=== PATIENT | male | born 1965 | race Caucasian/White ===

== ENCOUNTER 2022-04-26 14:29 | Inpatient (IN) | payer OTHER ==
[2022-04-26 15:04] VITALS: BMI 31.1
[2022-04-26] MEDS ORDERED: chlordiazePOXIDE HCL 25 MG CAPSULE PO SCH (17:00)
[2022-04-26] MEDS ORDERED: IBUPROFEN 400 MG TABLET (FP) PO PRN (17:12)
[2022-04-26] MEDS ORDERED: ONDANSETRON *ODT* 4 MG TABLET SL PRN (17:12)
[2022-04-26] MEDS ORDERED: MAGNESIUM CITRATE 300 ML BOTTLE PO PRN (17:12)
[2022-04-26] MEDS ORDERED: MAGNESIUM HYDROX 2400MG/30ML ORAL SUSPENSION 30 ML CUP PO PRN (17:12)
[2022-04-26] MEDS ORDERED: BISMUTH SUBSALICYLATE 524 MG/30 ML PO PRN (17:12)
[2022-04-26] MEDS ORDERED: LOPERAMIDE HCL 2 MG CAPSULE PO PRN (17:12)
[2022-04-26] MEDS ORDERED: MAG HYDROX/AL HYDROX/SIMETH 30 ML UNIT-DOSE CUP PO PRN (17:12)
[2022-04-26] MEDS ORDERED: NICOTINE 10 MG CARTRIDGE (INHALER) IH PRN (17:12)
[2022-04-26] MEDS ORDERED: IBUPROFEN 600 MG TABLET (FP) PO PRN (17:12)
[2022-04-26] MEDS ORDERED: ACETAMINOPHEN 325 MG TABLET (FP) PO PRN ×2 (17:12)
[2022-04-26] MEDS ORDERED: BENZOCAINE/MENTHOL (CHLORASEPTIC ) LOZENGE MM PRN (17:12)
[2022-04-26] MEDS ORDERED: chlordiazePOXIDE HCL 25 MG CAPSULE PO PRN (17:12)
[2022-04-26] MEDS ORDERED: NALOXONE HCL (KLOXXADO) 8 MG SPRAY NS PRN (17:12)
[2022-04-26] MEDS ORDERED: diazePAM 5 MG TABLET PO PRN (17:12)
[2022-04-26] MEDS ORDERED: DICYCLOMINE HCL 10 MG CAPSULE PO PRN (17:12)
[2022-04-26] MEDS: diazePAM 5 MG TABLET PO SCH ×2 (17:42→22:28)
[2022-04-26] MEDS: hydrOXYzine PAMOATE 25 MG CAPSULE (FP) PO SCH ×2 (17:43→22:29)
[2022-04-26] MEDS: PRENATAL VITAMINS W/ FOLIC ACID TABLET (FP) PO SCH (19:23)
[2022-04-26] MEDS: NICOTINE 21 MG/24 HOURS TOPICAL PATCH TD SCH (19:23)
[2022-04-26] MEDS: THIAMINE HCL 100 MG TABLET (FP) PO SCH (22:28)
[2022-04-26] MEDS: MELATONIN 5 MG TABLETS PO SCH (22:29)
[2022-04-27] MEDS: diazePAM 5 MG TABLET PO SCH ×2 (05:37→10:55)
[2022-04-27] MEDS: hydrOXYzine PAMOATE 25 MG CAPSULE (FP) PO SCH ×5 (05:38→22:54)
[2022-04-27] MEDS: PRENATAL VITAMINS W/ FOLIC ACID TABLET (FP) PO SCH (09:34)
[2022-04-27] MEDS: NICOTINE 21 MG/24 HOURS TOPICAL PATCH TD SCH (09:47)
[2022-04-27] MEDS ORDERED: methaDONE HCL 40 MG DISPERSABLE TABLET PO ONE (10:00)
[2022-04-27 11:12] LABS: CALCIUM 8.4 mg/dL (8.5-10.1)
[2022-04-27 11:13] LABS: ALBUMIN 2.8 g/dl (3.4-5.0); BLOOD UREA NITROGEN 12.8 mg/dL (7-18)
[2022-04-27 11:15] LABS: CREATININE 0.6 mg/dL (0.55-1.3); HEMATOCRIT 30.7 % (35.4-49); HEMOGLOBIN 10.7 GM/dL (11.7-16.9); MCH 28.1 pg (25.7-33.7); MCHC 34.7 g/dl (32.0-35.9); MEAN CELL VOLUME 80.9 fl (80-96); MEAN PLT VOLUME 7.2 fl (7.5-11.1); PLATELET COUNT 59 10^3/uL (134-434); RDW 16.8 % (11.9-15.9); TOT PROT 6.3 g/dl (6.4-8.2); WHITE BLOOD COUNT 2.8 K/mm3 (4.0-10.0)
[2022-04-27 11:21] LABS: BILIRUBIN,TOTAL 0.7 mg/dL (0.2-1)
[2022-04-27] MEDS ORDERED: chlordiazePOXIDE HCL 25 MG CAPSULE PO PRN (11:38)
[2022-04-27] MEDS ORDERED: chlordiazePOXIDE HCL 25 MG CAPSULE PO SCH (17:00)
[2022-04-27] MEDS ORDERED: chlordiazePOXIDE HCL 10 MG CAPSULE PO SCH (17:44)
[2022-04-27] MEDS: THIAMINE HCL 100 MG TABLET (FP) PO SCH (22:54)
[2022-04-27] MEDS: MELATONIN 5 MG TABLETS PO SCH (22:55)
[2022-04-27] MEDS: PARoxetine HCL 10 MG TABLET PO SCH (22:55)
[2022-04-28] MEDS: chlorproMAZINE HCL 100 MG TABLET PO SCH ×2 (00:10→22:27)
[2022-04-28] MEDS ORDERED: chlordiazePOXIDE HCL 25 MG CAPSULE PO SCH (05:00)
[2022-04-28] MEDS ORDERED: diazePAM 5 MG TABLET PO SCH (06:00)
[2022-04-28] MEDS: methaDONE HCL 40 MG DISPERSABLE TABLET PO SCH (06:01)
[2022-04-28] MEDS: chlordiazePOXIDE HCL 10 MG CAPSULE PO SCH ×3 (06:01→22:26)
[2022-04-28] MEDS: hydrOXYzine PAMOATE 25 MG CAPSULE (FP) PO SCH ×5 (06:03→22:27)
[2022-04-28] MEDS: NICOTINE 21 MG/24 HOURS TOPICAL PATCH TD SCH (10:30)
[2022-04-28] MEDS: PRENATAL VITAMINS W/ FOLIC ACID TABLET (FP) PO SCH (10:31)
[2022-04-28] MEDS: METHOCARBAMOL 500 MG TABLET PO PRN (10:31)
[2022-04-28] MEDS: THIAMINE HCL 100 MG TABLET (FP) PO SCH (22:26)
[2022-04-28] MEDS: PARoxetine HCL 10 MG TABLET PO SCH (22:27)
[2022-04-28] MEDS: MELATONIN 5 MG TABLETS PO SCH (22:27)
[2022-04-29] MEDS ORDERED: chlordiazePOXIDE HCL 10 MG CAPSULE PO PRN ×2
[2022-04-29] MEDS ORDERED: chlordiazePOXIDE HCL 10 MG CAPSULE PO SCH (05:00)
[2022-04-29] MEDS: chlordiazePOXIDE HCL 10 MG CAPSULE PO SCH ×2 (05:13→17:45)
[2022-04-29] MEDS: methaDONE HCL 40 MG DISPERSABLE TABLET PO SCH (05:14)
[2022-04-29] MEDS: hydrOXYzine PAMOATE 25 MG CAPSULE (FP) PO SCH ×5 (05:16→22:47)
[2022-04-29] MEDS ORDERED: diazePAM 5 MG TABLET PO SCH (06:00)
[2022-04-29] MEDS: PRENATAL VITAMINS W/ FOLIC ACID TABLET (FP) PO SCH (10:40)
[2022-04-29] MEDS: NICOTINE 21 MG/24 HOURS TOPICAL PATCH TD SCH (10:40)
[2022-04-29] MEDS: METHOCARBAMOL 500 MG TABLET PO PRN (10:41)
[2022-04-29 21:09] VITALS: RESP 16
[2022-04-29] MEDS: PARoxetine HCL 10 MG TABLET PO SCH (22:47)
[2022-04-29] MEDS: MELATONIN 5 MG TABLETS PO SCH (22:47)
[2022-04-29] MEDS: chlorproMAZINE HCL 100 MG TABLET PO SCH (22:47)
[2022-04-29] MEDS: THIAMINE HCL 100 MG TABLET (FP) PO SCH (22:48)
[2022-04-30] MEDS ORDERED: chlordiazePOXIDE HCL 10 MG CAPSULE PO SCH (05:00)
[2022-04-30] MEDS: methaDONE HCL 40 MG DISPERSABLE TABLET PO SCH (05:13)
[2022-04-30] MEDS: hydrOXYzine PAMOATE 25 MG CAPSULE (FP) PO SCH (05:13)
[2022-04-30] MEDS ORDERED: diazePAM 5 MG TABLET PO ONE (06:00)
[2022-04-30] MEDS ORDERED: chlordiazePOXIDE HCL 10 MG CAPSULE PO ONE (06:00)
[2022-04-30 06:21] VITALS: BP 130/80; PULSE 67; TEMP 98
[2022-05-01] MEDS ORDERED: chlordiazePOXIDE HCL 10 MG CAPSULE PO ONE (05:00)
== END 2022-04-30 07:47 | disposition other institution (70) | DRG 897 ==
LOC: SUATTDRO 14:29 → YASAS 14:29 → Y6N 16:47
PROVIDERS: ADMIT Allergy & Immunology; ATTEND Surgery
PROC: HZ2ZZZZ Detoxification Services for Substance Abuse Treatment (ICD-10-PCS; principal; 2022-04-26)
DX: F10.230 Alcohol dependence with withdrawal, uncomplicated (principal); F11.20 Opioid dependence, uncomplicated; F14.20 Cocaine dependence, uncomplicated; F13.20 Sedative, hypnotic or anxiolytic dependence, uncomplicated; F19.282 Other psychoactive substance dependence with psychoactive substance-induced sleep disorder; F31.81 Bipolar II disorder; F12.20 Cannabis dependence, uncomplicated; F17.210 Nicotine dependence, cigarettes, uncomplicated; F19.24 Other psychoactive substance dependence with psychoactive substance-induced mood disorder; E66.9 Obesity, unspecified; Z68.31 Body mass index [BMI] 31.0-31.9, adult; Z86.19 Personal history of other infectious and parasitic diseases
CPT/HCPCS: 36415; 80053; 85027; 86780; 87811; 93005; 93010; C9803-CS; U0003; U0005

== ENCOUNTER 2022-08-31 12:11 | Inpatient (IN) | payer OTHER ==
[2022-08-31 15:07] VITALS: BMI 30.4
[2022-08-31] MEDS ORDERED: IBUPROFEN 400 MG TABLET (FP) PO PRN (15:28)
[2022-08-31] MEDS ORDERED: hydrOXYzine PAMOATE 25 MG CAPSULE (FP) PO PRN (15:28)
[2022-08-31] MEDS ORDERED: ACETAMINOPHEN 325 MG TABLET (FP) PO PRN ×2 (15:28)
[2022-08-31] MEDS ORDERED: IBUPROFEN 600 MG TABLET (FP) PO PRN (15:28)
[2022-08-31] MEDS ORDERED: POLYETHYLENE GLYCOL (HEALTHYLAX) 3350 17 GM PACKET PO PRN (15:28)
[2022-08-31] MEDS ORDERED: BISMUTH SUBSALICYLATE 524 MG/30 ML PO PRN (15:28)
[2022-08-31] MEDS ORDERED: MAGNESIUM HYDROX 2400MG/30ML ORAL SUSPENSION 30 ML CUP PO PRN (15:28)
[2022-08-31] MEDS ORDERED: LOPERAMIDE HCL 2 MG CAPSULE PO PRN (15:28)
[2022-08-31] MEDS ORDERED: BENZOCAINE/MENTHOL (CHLORASEPTIC ) LOZENGE MM PRN (15:28)
[2022-08-31] MEDS ORDERED: MAG HYDROX/AL HYDROX/SIMETH 30 ML UNIT-DOSE CUP PO PRN (15:28)
[2022-08-31] MEDS ORDERED: ONDANSETRON *ODT* 4 MG TABLET SL PRN (15:28)
[2022-08-31] MEDS ORDERED: NICOTINE POLACRILEX 4 MG GUM BUC PRN (15:28)
[2022-08-31] MEDS ORDERED: METHOCARBAMOL 500 MG TABLET PO PRN (15:28)
[2022-08-31] MEDS ORDERED: DICYCLOMINE HCL 10 MG CAPSULE PO PRN (15:28)
[2022-08-31] MEDS ORDERED: NALOXONE HCL (KLOXXADO) 8 MG SPRAY NS PRN (15:28)
[2022-08-31] MEDS ORDERED: chlordiazePOXIDE HCL 25 MG CAPSULE PO PRN (15:28)
[2022-08-31] MEDS ORDERED: NICOTINE 10 MG CARTRIDGE (INHALER) IH PRN (15:28)
[2022-08-31] MEDS: chlordiazePOXIDE HCL 25 MG CAPSULE PO SCH ×2 (16:57→22:32)
[2022-08-31] MEDS: NICOTINE 21 MG/24 HOURS TOPICAL PATCH TD SCH (17:02)
[2022-08-31] MEDS: THIAMINE HCL 100 MG TABLET (FP) PO SCH (22:32)
[2022-08-31] MEDS: MELATONIN 5 MG TABLETS PO SCH (22:32)
[2022-09-01] MEDS: chlordiazePOXIDE HCL 25 MG CAPSULE PO SCH ×4 (05:50→22:19)
[2022-09-01] MEDS ORDERED: methaDONE HCL 10 MG TABLET PO SCH ×2 (08:30→09:45)
[2022-09-01] MEDS: PRENATAL VITAMINS W/ FOLIC ACID TABLET (FP) PO SCH (10:06)
[2022-09-01] MEDS: methaDONE 40 MG, methaDONE 30 MG PO SCH (10:23)
[2022-09-01] MEDS: NICOTINE 21 MG/24 HOURS TOPICAL PATCH TD SCH (10:25)
[2022-09-01 11:47] LABS: HEMATOCRIT 33.8 % (35.4-49); HEMOGLOBIN 11.6 GM/dL (11.7-16.9); MCH 27.6 pg (25.7-33.7); MCHC 34.4 g/dl (32.0-35.9); MEAN CELL VOLUME 80.2 fl (80-96); MEAN PLT VOLUME 7.5 fl (7.5-11.1); PLATELET COUNT 55 10^3/uL (134-434); RBC 4.21 M/mm3 (4.00-5.60); RDW 16.2 % (11.9-15.9); WHITE BLOOD COUNT 2.9 K/mm3 (4.0-10.0)
[2022-09-01 11:55] LABS: ALBUMIN 3.4 g/dl (3.4-5.0); BLOOD UREA NITROGEN 16.1 mg/dL (7-18)
[2022-09-01 11:56] LABS: CALCIUM 8.8 mg/dL (8.5-10.1)
[2022-09-01 11:57] LABS: CREATININE 0.7 mg/dL (0.55-1.3)
[2022-09-01 11:58] LABS: TOT PROT 7.1 g/dl (6.4-8.2)
[2022-09-01 11:59] LABS: BILIRUBIN,TOTAL 1.1 mg/dL (0.2-1)
[2022-09-01 17:16] VITALS: RESP 18
[2022-09-01 20:35] VITALS: TEMP 97.3
[2022-09-01] MEDS: THIAMINE HCL 100 MG TABLET (FP) PO SCH (22:19)
[2022-09-01] MEDS: MELATONIN 5 MG TABLETS PO SCH (22:19)
[2022-09-02] MEDS: methaDONE 40 MG, methaDONE 30 MG PO SCH (05:03)
[2022-09-02] MEDS: chlordiazePOXIDE HCL 25 MG CAPSULE PO SCH ×2 (05:04→10:08)
[2022-09-02 09:26] VITALS: BP 102/56; PULSE 66
[2022-09-02] MEDS: PRENATAL VITAMINS W/ FOLIC ACID TABLET (FP) PO SCH (10:04)
[2022-09-02] MEDS: NICOTINE 21 MG/24 HOURS TOPICAL PATCH TD SCH (10:11)
[2022-09-03] MEDS ORDERED: chlordiazePOXIDE HCL 10 MG CAPSULE PO PRN
[2022-09-03] MEDS ORDERED: chlordiazePOXIDE HCL 10 MG CAPSULE PO SCH (05:00)
[2022-09-04] MEDS ORDERED: chlordiazePOXIDE HCL 10 MG CAPSULE PO SCH (05:00)
[2022-09-05] MEDS ORDERED: chlordiazePOXIDE HCL 10 MG CAPSULE PO ONE (05:00)
== END 2022-09-02 13:04 | disposition left against medical advice (07) | DRG 894 ==
LOC: YASAS 12:11 → Y3N 15:50
PROVIDERS: ADMIT Allergy & Immunology; ATTEND Surgery
PROC: HZ2ZZZZ Detoxification Services for Substance Abuse Treatment (ICD-10-PCS; principal; 2022-08-31)
DX: F10.230 Alcohol dependence with withdrawal, uncomplicated (principal); F11.20 Opioid dependence, uncomplicated; F13.230 Sedative, hypnotic or anxiolytic dependence with withdrawal, uncomplicated; F12.20 Cannabis dependence, uncomplicated; F17.210 Nicotine dependence, cigarettes, uncomplicated; F19.24 Other psychoactive substance dependence with psychoactive substance-induced mood disorder; I45.81 Long QT syndrome; E66.9 Obesity, unspecified; Z68.30 Body mass index [BMI] 30.0-30.9, adult; Z91.14 Patient's other noncompliance with medication regimen; Z86.59 Personal history of other mental and behavioral disorders; Z56.0 Unemployment, unspecified
CPT/HCPCS: 36415; 80053; 85027; 86780; 87811; 93005; 93010; C9803-CS; U0003; U0005

== ENCOUNTER 2024-01-04 11:12 | Inpatient (IN) | payer OTHER ==
[2024-01-04 12:05] VITALS: BMI 23.4
[2024-01-04] MEDS ORDERED: MAG HYDROX/AL HYDROX/SIMETH 30 ML UNIT-DOSE CUP PO PRN (12:47)
[2024-01-04] MEDS ORDERED: BISMUTH SUBSALICYLATE 524 MG/30 ML PO PRN (12:47)
[2024-01-04] MEDS ORDERED: IBUPROFEN 400 MG TABLET (FP) PO PRN (12:47)
[2024-01-04] MEDS ORDERED: DICYCLOMINE HCL 10 MG CAPSULE PO PRN (12:47)
[2024-01-04] MEDS ORDERED: BENZONATATE 200 MG CAPSULE PO PRN (12:47)
[2024-01-04] MEDS ORDERED: IBUPROFEN 600 MG TABLET (FP) PO PRN (12:47)
[2024-01-04] MEDS ORDERED: BENZOCAINE/MENTHOL (CHLORASEPTIC ) LOZENGE MM PRN (12:47)
[2024-01-04] MEDS ORDERED: ACETAMINOPHEN 325 MG TABLET (FP) PO PRN (12:47)
[2024-01-04] MEDS ORDERED: MAGNESIUM HYDROX 2400MG/30ML ORAL SUSPENSION 30 ML CUP PO PRN (12:47)
[2024-01-04] MEDS ORDERED: NICOTINE POLACRILEX 2 MG LOZENGE BC PRN (12:47)
[2024-01-04] MEDS ORDERED: LOPERAMIDE HCL 2 MG CAPSULE PO PRN (12:47)
[2024-01-04] MEDS ORDERED: ONDANSETRON *ODT* 4 MG TABLET SL PRN (12:47)
[2024-01-04] MEDS ORDERED: POLYETHYLENE GLYCOL (HEALTHYLAX) 3350 17 GM PACKET PO PRN (12:47)
[2024-01-04] MEDS ORDERED: guaiFENesin 600 MG TABLET.ER (FP) PO PRN (12:47)
[2024-01-04] MEDS: diazePAM 5 MG TABLET PO PRN (13:14)
[2024-01-04] MEDS ORDERED: diazePAM 5 MG TABLET ONE (13:31)
[2024-01-04] MEDS: METHOCARBAMOL 500 MG TABLET PO PRN (14:39)
[2024-01-04] MEDS: hydrOXYzine PAMOATE 25 MG CAPSULE (FP) PO PRN (14:39)
[2024-01-04] MEDS: diazePAM 5 MG TABLET PO SCH (17:06)
[2024-01-04] MEDS: THIAMINE HCL 100 MG TABLET (FP) PO SCH (22:26)
[2024-01-04] MEDS: MELATONIN 5 MG TABLETS PO SCH (22:26)
[2024-01-05] MEDS ORDERED: methaDONE HCL 10 MG TABLET PO SCH (08:30)
[2024-01-05] MEDS: PRENATAL VITAMINS W/ FOLIC ACID TABLET (FP) PO SCH (09:13)
[2024-01-05] MEDS: PANTOPRAZOLE 40 MG TABLET PO SCH (09:14)
[2024-01-05 12:20] LABS: HEMATOCRIT 32.7 % (35.4-49); HEMOGLOBIN 11.4 GM/dL (11.7-16.9); MCH 29.3 pg (25.7-33.7); MCHC 34.9 g/dl (32.0-35.9); MEAN PLT VOLUME 7.7 fl (7.5-11.1); PLATELET COUNT 48 10^3/uL (134-434); RBC 3.89 M/mm3 (4.00-5.60); RDW 16.6 % (11.9-15.9); WHITE BLOOD COUNT 2.7 K/mm3 (4.0-10.0)
[2024-01-05 12:37] LABS: CHLORIDE 103 mmol/L (98-107); POTASSIUM 4.5 mmol/L (3.5-5.1); SODIUM 139 mmol/L (136-145)
[2024-01-05 12:55] LABS: BLOOD UREA NITROGEN 14.4 mg/dL (7-18); CALCIUM 9.3 mg/dL (8.5-10.1); CO2 35 mmol/L (21-32); GLUCOSE,RANDOM 101 mg/dL (74-106)
[2024-01-05 12:56] LABS: ALBUMIN 3.1 g/dl (3.4-5.0)
[2024-01-05 12:58] LABS: CREATININE 0.6 mg/dL (0.55-1.3)
[2024-01-05 12:59] LABS: SGOT/AST 31 U/L (15-37); SGPT/ALT 28 U/L (13-61)
[2024-01-05 13:00] LABS: BILIRUBIN,TOTAL 1.2 mg/dL (0.2-1)
[2024-01-05 13:01] LABS: ALK PHOS 117 U/L (45-117)
[2024-01-05 13:14] LABS: ANION GAP 1 mmol/L (4-13)
[2024-01-05] MEDS: QUEtiapine FUMARATE 200 MG TABLET PO SCH (22:37)
[2024-01-06] MEDS: diazePAM 5 MG TABLET PO SCH (05:40)
[2024-01-06 11:46] LABS: HEMATOCRIT 31.2 % (35.4-49); HEMOGLOBIN 10.5 GM/dL (11.7-16.9); MCH 29.1 pg (25.7-33.7); MCHC 33.7 g/dl (32.0-35.9); MEAN CELL VOLUME 86.3 fl (80-96); MEAN PLT VOLUME 8.6 fl (7.5-11.1); PLATELET COUNT 45 10^3/uL (134-434); RBC 3.62 M/mm3 (4.00-5.60); RDW 16.7 % (11.9-15.9)
[2024-01-07] MEDS: diazePAM 5 MG TABLET PO SCH (06:10)
[2024-01-07 11:59] LABS: HEMATOCRIT 33.1 % (35.4-49); HEMOGLOBIN 11.1 GM/dL (11.7-16.9); MCHC 33.5 g/dl (32.0-35.9); MEAN CELL VOLUME 86.8 fl (80-96); MEAN PLT VOLUME 8.4 fl (7.5-11.1); PLATELET COUNT 38 10^3/uL (134-434); RBC 3.82 M/mm3 (4.00-5.60); RDW 17.1 % (11.9-15.9); WHITE BLOOD COUNT 3.6 K/mm3 (4.0-10.0)
[2024-01-08] MEDS: diazePAM 5 MG TABLET PO ONE (05:35)
[2024-01-08 09:04] VITALS: BP 112/67; PULSE 73; RESP 16; TEMP 98
[2024-01-08] MEDS: FERROUS SO4 325 MG TABLET (FP) PO SCH (11:37)
== END 2024-01-08 11:55 | disposition home or self-care (01) | DRG 897 ==
LOC: YASAS 11:12 → Y6N 13:14
PROVIDERS: ADMIT Allergy & Immunology; ATTEND Surgery
PROC: HZ2ZZZZ Detoxification Services for Substance Abuse Treatment (ICD-10-PCS; principal; 2024-01-04)
DX: F10.230 Alcohol dependence with withdrawal, uncomplicated (principal); F11.20 Opioid dependence, uncomplicated; F14.20 Cocaine dependence, uncomplicated; D61.818 Other pancytopenia; F19.282 Other psychoactive substance dependence with psychoactive substance-induced sleep disorder; F13.230 Sedative, hypnotic or anxiolytic dependence with withdrawal, uncomplicated; F12.20 Cannabis dependence, uncomplicated; F17.210 Nicotine dependence, cigarettes, uncomplicated; F20.9 Schizophrenia, unspecified; D50.9 Iron deficiency anemia, unspecified; K21.9 Gastro-esophageal reflux disease without esophagitis; B18.2 Chronic viral hepatitis C; Z86.59 Personal history of other mental and behavioral disorders
CPT/HCPCS: 36415; 80053; 80307; 82247; 82607; 82746; 83540; 83550; 85027; 85045; 86780; 93005; 93010

== ENCOUNTER 2024-06-10 15:56 | Inpatient (IN) | payer OTHER ==
[2024-06-10 16:50] VITALS: BMI 27.3
[2024-06-10] MEDS ORDERED: ONDANSETRON *ODT* 4 MG TABLET SL PRN (19:28)
[2024-06-10] MEDS ORDERED: hydrOXYzine PAMOATE 25 MG CAPSULE (FP) PO PRN (19:28)
[2024-06-10] MEDS ORDERED: NALOXONE HCL 0.4 MG/ML VIAL IM PRN (19:28)
[2024-06-10] MEDS ORDERED: BENZONATATE 200 MG CAPSULE PO PRN (19:28)
[2024-06-10] MEDS ORDERED: LOPERAMIDE HCL 2 MG CAPSULE PO PRN (19:28)
[2024-06-10] MEDS ORDERED: BISMUTH SUBSALICYLATE 524 MG/30 ML PO PRN (19:28)
[2024-06-10] MEDS ORDERED: DICYCLOMINE HCL 10 MG CAPSULE PO PRN (19:28)
[2024-06-10] MEDS ORDERED: MAG HYDROX/AL HYDROX/SIMETH 30 ML UNIT-DOSE CUP PO PRN (19:28)
[2024-06-10] MEDS ORDERED: guaiFENesin 600 MG TABLET.ER (FP) PO PRN (19:28)
[2024-06-10] MEDS ORDERED: BENZOCAINE/MENTHOL (CHLORASEPTIC ) LOZENGE MM PRN (19:28)
[2024-06-10] MEDS ORDERED: IBUPROFEN 600 MG TABLET (FP) PO PRN (19:28)
[2024-06-10] MEDS ORDERED: NALOXONE (NARCAN) HCL 4 MG/0.1 ML SPRAY NS PRN (19:28)
[2024-06-10] MEDS ORDERED: IBUPROFEN 400 MG TABLET (FP) PO PRN (19:28)
[2024-06-10] MEDS ORDERED: ACETAMINOPHEN 325 MG TABLET (FP) PO PRN (19:28)
[2024-06-10] MEDS: MELATONIN 5 MG TABLETS PO SCH (22:14)
[2024-06-10] MEDS: THIAMINE 100 MG TABLET PO SCH (22:14)
[2024-06-10] MEDS: DOCUSATE SODIUM 100 MG CAPSULE (FP) PO SCH (22:14)
[2024-06-10] MEDS: METHOCARBAMOL 500 MG TABLET PO PRN (22:15)
[2024-06-11] MEDS: MAGNESIUM HYDROX 2400MG/30ML ORAL SUSPENSION 30 ML CUP PO PRN (07:05)
[2024-06-11] MEDS: FERROUS SO4 325 MG TABLET (FP) PO SCH (07:49)
[2024-06-11] MEDS ORDERED: chlordiazePOXIDE HCL 25 MG CAPSULE PO PRN (08:12)
[2024-06-11] MEDS ORDERED: methaDONE HCL 10 MG TABLET PO SCH (09:00)
[2024-06-11] MEDS: PRENATAL VITAMINS W/ FOLIC ACID TABLET (FP) PO SCH (09:45)
[2024-06-11] MEDS: methaDONE 80 MG, methaDONE 20 MG PO SCH (09:45)
[2024-06-11] MEDS: PANTOPRAZOLE 40 MG TABLET PO SCH (09:45)
[2024-06-11] MEDS: chlordiazePOXIDE HCL 25 MG CAPSULE PO SCH (10:22)
[2024-06-11 11:19] LABS: HEMATOCRIT 35.8 % (35.4-49); HEMOGLOBIN 11.8 GM/dL (11.7-16.9); MEAN CELL VOLUME 81.9 fl (80-96); MEAN PLT VOLUME 7.3 fl (7.5-11.1); PLATELET COUNT 75 10^3/uL (134-434); RBC 4.37 M/mm3 (4.00-5.60); RDW 17.8 % (11.9-15.9); WHITE BLOOD COUNT 4.2 K/mm3 (4.0-10.0)
[2024-06-11 13:13] LABS: CHLORIDE 106 mmol/L (98-107); POTASSIUM 4.9 mmol/L (3.5-5.1); SODIUM 140 mmol/L (136-145)
[2024-06-11 13:14] LABS: ALBUMIN 3.1 g/dl (3.4-5.0); ANION GAP 6 mmol/L (4-13); BLOOD UREA NITROGEN 15.3 mg/dL (7-18); CALCIUM 8.8 mg/dL (8.5-10.1); CO2 28 mmol/L (21-32); GLUCOSE,RANDOM 107 mg/dL (74-106)
[2024-06-11 13:17] LABS: SGOT/AST 43 U/L (15-37); SGPT/ALT 29 U/L (13-61)
[2024-06-11 13:19] LABS: BILIRUBIN,TOTAL 1.1 mg/dL (0.2-1); CREATININE 0.6 mg/dL (0.55-1.3)
[2024-06-11 13:20] LABS: ALK PHOS 147 U/L (45-117)
[2024-06-11] MEDS: POLYETHYLENE GLYCOL (HEALTHYLAX) 3350 17 GM PACKET PO PRN (16:54)
[2024-06-11] MEDS: QUEtiapine FUMARATE 200 MG TABLET PO SCH (22:18)
[2024-06-13] MEDS: chlordiazePOXIDE HCL 25 MG CAPSULE PO SCH (05:30)
[2024-06-14] MEDS ORDERED: chlordiazePOXIDE HCL 10 MG CAPSULE PO PRN
[2024-06-14] MEDS: chlordiazePOXIDE HCL 10 MG CAPSULE PO SCH (05:46)
[2024-06-14 20:35] VITALS: RESP 18; TEMP 97.8
[2024-06-14 23:52] VITALS: BP 146/78; PULSE 77
[2024-06-15] MEDS ORDERED: chlordiazePOXIDE HCL 10 MG CAPSULE PO SCH (05:00)
[2024-06-16] MEDS ORDERED: chlordiazePOXIDE HCL 10 MG CAPSULE PO ONE (05:00)
== END 2024-06-15 06:21 | disposition short-term general hospital (02) | DRG 897 ==
LOC: YASAS 15:56 → Y3N 19:57
PROVIDERS: ADMIT Allergy & Immunology; ATTEND Surgery
PROC: HZ2ZZZZ Detoxification Services for Substance Abuse Treatment (ICD-10-PCS; principal; 2024-06-10)
DX: F10.230 Alcohol dependence with withdrawal, uncomplicated (principal); F14.20 Cocaine dependence, uncomplicated; F13.20 Sedative, hypnotic or anxiolytic dependence, uncomplicated; F11.20 Opioid dependence, uncomplicated; F17.210 Nicotine dependence, cigarettes, uncomplicated; F20.9 Schizophrenia, unspecified; K21.9 Gastro-esophageal reflux disease without esophagitis; R41.82 Altered mental status, unspecified; R60.0 Localized edema; R26.89 Other abnormalities of gait and mobility; Z86.19 Personal history of other infectious and parasitic diseases
CPT/HCPCS: 36415; 80053; 80305; 80307; 85027; 86780; 93005; 93010

== ENCOUNTER 2024-06-15 00:26 | Inpatient (IN) | payer OTHER ==
[2024-06-15 00:44] VITALS: BMI 27.3
[2024-06-15 01:30] LABS: BASO % 0.3 % (0-2.0); HEMATOCRIT 31.4 % (35.4-49); HEMOGLOBIN 10.6 GM/dL (11.7-16.9); LYMPH % 11.8 % (8-40); MCH 27.4 pg (25.7-33.7); MCHC 33.7 g/dl (32.0-35.9); MEAN CELL VOLUME 81.3 fl (80-96); MEAN PLT VOLUME 7.5 fl (7.5-11.1); MONO % 7.4 % (3.8-10.2); NEUT % 78.5 % (42.8-82.8); PLATELET COUNT 59 10^3/uL (134-434); RBC 3.86 M/mm3 (4.00-5.60); RDW 17.1 % (11.9-15.9)
[2024-06-15 01:40] LABS: INR 1.32 (0.83-1.09); PROTHROMBIN TIME (PATIENT) 15.1 SEC (9.7-13.0)
[2024-06-15 01:43] LABS: ACTIVATED PTT 32.9 SECONDS (25.2-36.5)
[2024-06-15 01:54] LABS: POTASSIUM 3.9 mmol/L (3.5-5.1)
[2024-06-15 01:55] LABS: CALCIUM 8.6 mg/dL (8.5-10.1)
[2024-06-15 01:56] LABS: ALBUMIN 3.2 g/dl (3.4-5.0)
[2024-06-15 01:57] LABS: BLOOD UREA NITROGEN 19.2 mg/dL (7-18)
[2024-06-15 01:59] LABS: CREATININE 0.5 mg/dL (0.55-1.3)
[2024-06-15 02:02] LABS: BILIRUBIN,TOTAL 1.1 mg/dL (0.2-1)
[2024-06-15 02:03] LABS: TOT PROT 6.8 g/dl (6.4-8.2)
[2024-06-15 02:40] LABS: EPI CELLS 3 /uL (0-25.1); HYALINE CASTS 0 /uL (0-3.1); PH,URINE 8.5 (5.0-8.0); URINE APPEARANCE CLOUDY; URINE BACTERIA >9,000 /uL (0-1359); URINE BILIRUBIN NEGATIVE (NEGATIVE); URINE COLOR YELLOW; URINE GLUCOSE (UA) NEGATIVE (NEGATIVE); URINE KETONE NEGATIVE (NEGATIVE); URINE LEUK ESTERASE 1+ (NEGATIVE); URINE NITRITE NEGATIVE (NEGATIVE); URINE PROTEIN NEGATIVE (NEGATIVE); URINE RBC 9 /uL (0-23.9); URINE WBC 84 /uL (0-25.8)
[2024-06-15 03:30] LABS: COCAINE, UR NEGATIVE (NEGATIVE); METHADONE, UR NEGATIVE (NEGATIVE); OPIATES, URI NEGATIVE (NEGATIVE); URINE BARBITURATES NEGATIVE (NEGATIVE)
[2024-06-15 03:31] LABS: PHENCYCLIDINE,URINE NEGATIVE (NEGATIVE)
[2024-06-15 03:39] LABS: URINE AMPHETAMINES NEGATIVE (NEGATIVE); URINE BENZODIAZEPINES POSITIVE (NEGATIVE)
[2024-06-15] MEDS ORDERED: CEFTRIAXONE 1 GM/50 ML BAG ONE ×2 (04:04→09:21)
[2024-06-15] MEDS: CEFTRIAXONE 1,000 MG in DEXTROSE 5%-WATER - 50 ML IVPB ONE (04:28)
[2024-06-15] MEDS ORDERED: chlordiazePOXIDE HCL 10 MG CAPSULE ONE (05:42)
[2024-06-15] MEDS: chlordiazePOXIDE HCL 10 MG CAPSULE PO SCH (05:46)
[2024-06-15 08:48] LABS: HEMATOCRIT 33.5 % (35.4-49); HEMOGLOBIN 11.1 GM/dL (11.7-16.9); MCH 27.4 pg (25.7-33.7); MCHC 33.2 g/dl (32.0-35.9); MEAN CELL VOLUME 82.6 fl (80-96); MEAN PLT VOLUME 7.1 fl (7.5-11.1); PLATELET COUNT 72 10^3/uL (134-434); RBC 4.06 M/mm3 (4.00-5.60); RDW 17.2 % (11.9-15.9); WHITE BLOOD COUNT 5.7 K/mm3 (4.0-10.0)
[2024-06-15 09:18] LABS: POTASSIUM 4.2 mmol/L (3.5-5.1)
[2024-06-15 09:20] LABS: ALBUMIN 3.3 g/dl (3.4-5.0); CALCIUM 8.7 mg/dL (8.5-10.1)
[2024-06-15] MEDS ORDERED: PANTOPRAZOLE 40 MG TABLET PO ONE (09:20)
[2024-06-15 09:21] LABS: MAGNESIUM 2.1 mg/dL (1.8-2.4)
[2024-06-15] MEDS: PANTOPRAZOLE 40 MG TABLET PO SCH (09:22)
[2024-06-15 09:23] LABS: CREATININE 0.7 mg/dL (0.55-1.3)
[2024-06-15] MEDS: FERROUS SO4 325 MG TABLET (FP) PO SCH (09:23)
[2024-06-15] MEDS: CEFTRIAXONE 1 GM in DEXTROSE 5%-WATER - 50 ML IVPB SCH (09:23)
[2024-06-15 09:24] LABS: PHOSPHOROUS 3.5 mg/dL (2.5-4.9)
[2024-06-15 09:25] LABS: BILIRUBIN,TOTAL 1.2 mg/dL (0.2-1); TOT PROT 7.3 g/dl (6.4-8.2)
[2024-06-15] MEDS ORDERED: THIAMINE HCL 200 MG/2 ML VIAL ONE (14:37)
[2024-06-15] MEDS: THIAMINE HCL 200 MG/2 ML VIAL IVPB SCH (14:42)
[2024-06-15] MEDS: MAGNESIUM SULFATE IN WATER 2 GM/50 ML IVPB IVPB ONE (15:59)
[2024-06-15] MEDS ORDERED: QUEtiapine FUMARATE 200 MG TABLET PO SCH (22:00)
[2024-06-15] MEDS: LACTULOSE 20 GM/30 ML UDC (FOR ORAL USE ONLY) PO SCH (22:46)
[2024-06-16] MEDS: LORazepam 2 MG/ML SDV VIAL IVPUSH ONE (00:09)
[2024-06-16] MEDS ORDERED: chlordiazePOXIDE HCL 10 MG CAPSULE PO ONE (05:00)
[2024-06-16] MEDS: NICOTINE 7 MG/24 HOURS TOPICAL PATCH TD PRN (10:02)
[2024-06-16] MEDS ORDERED: LORazepam 2 MG/ML SDV VIAL IVPUSH PRN (10:37)
[2024-06-16] MEDS: methaDONE HCL 40 MG DISPERSABLE TABLET PO SCH ×2 (11:10→13:09)
[2024-06-16] MEDS: methaDONE HCL 10 MG TABLET PO SCH (11:10)
[2024-06-16] MEDS: DEXTROSE 5%-0.45% SALINE 1,000 ML IV SCH (13:09)
[2024-06-17 09:22] LABS: BASO % 0.6 % (0-2.0); EOS % 2.6 % (0-4.5); HEMATOCRIT 37.1 % (35.4-49); HEMOGLOBIN 12.6 GM/dL (11.7-16.9); MCH 27.2 pg (25.7-33.7); MCHC 33.9 g/dl (32.0-35.9); MEAN CELL VOLUME 80.3 fl (80-96); MEAN PLT VOLUME 6.9 fl (7.5-11.1); MONO % 7.6 % (3.8-10.2); NEUT % 74.2 % (42.8-82.8); PLATELET COUNT 105 10^3/uL (134-434); RBC 4.62 M/mm3 (4.00-5.60); RDW 17.1 % (11.9-15.9); WHITE BLOOD COUNT 8.7 K/mm3 (4.0-10.0)
[2024-06-17 09:33] LABS: POTASSIUM 3.6 mmol/L (3.5-5.1)
[2024-06-17 09:42] LABS: CALCIUM 9.1 mg/dL (8.5-10.1)
[2024-06-17 09:43] LABS: ALBUMIN 3.6 g/dl (3.4-5.0); BLOOD UREA NITROGEN 15.4 mg/dL (7-18)
[2024-06-17 09:46] LABS: CREATININE 0.6 mg/dL (0.55-1.3)
[2024-06-17 09:47] LABS: BILIRUBIN,TOTAL 1.9 mg/dL (0.2-1)
[2024-06-18] MEDS ORDERED: MAGNESIUM SULF 50% (8.12 MEQ/2 ML-1 GM VIAL) IVPB ONE (14:37)
[2024-06-18] MEDS: NITROFURANTOIN MONOHYD/M-CRYST 100 MG CAPSULE PO SCH (17:06)
[2024-06-18] MEDS: THIAMINE HCL 200 MG/2 ML VIAL IVPB SCH (17:06)
[2024-06-18] MEDS: MAGNESIUM OXIDE 400 MG TABLET (FP) PO SCH (17:06)
[2024-06-18] MEDS: MAGNESIUM SULF 50% (8.12 MEQ/2 ML-1 GM VIAL) IVPB ONE (17:33)
[2024-06-18] MEDS: QUEtiapine FUMARATE 50 MG TABLET PO SCH (22:27)
[2024-06-18 22:31] VITALS: RESP 18
[2024-06-19 09:15] LABS: POTASSIUM 4.6 mmol/L (3.5-5.1)
[2024-06-19 09:26] LABS: ALBUMIN 3.3 g/dl (3.4-5.0); BLOOD UREA NITROGEN 16.6 mg/dL (7-18); CALCIUM 9.2 mg/dL (8.5-10.1)
[2024-06-19 09:27] LABS: MAGNESIUM 2.2 mg/dL (1.8-2.4)
[2024-06-19 09:29] LABS: CREATININE 0.7 mg/dL (0.55-1.3)
[2024-06-19 09:31] LABS: BILIRUBIN,TOTAL 1.2 mg/dL (0.2-1); TOT PROT 7.3 g/dl (6.4-8.2)
[2024-06-19] MEDS ORDERED: THIAMINE 100 MG TABLET PO SCH (10:00)
[2024-06-19] MEDS: LIDOCAINE 5% TOPICAL PATCH TP ONE (12:06)
[2024-06-19] MEDS: LIDOCAINE PATCH REMOVAL MC ONE (23:09)
[2024-06-20] MEDS: ACETAMINOPHEN 1000 MG/100 ML BAG IVPB ONE (10:13)
[2024-06-21 13:49] LABS: ALBUMIN 3.4 g/dl (3.4-5.0); CALCIUM 8.9 mg/dL (8.5-10.1)
[2024-06-21 13:50] LABS: BLOOD UREA NITROGEN 16.7 mg/dL (7-18)
[2024-06-21 13:53] LABS: CREATININE 0.6 mg/dL (0.55-1.3); TOT PROT 7.2 g/dl (6.4-8.2)
[2024-06-21] MEDS: ACETAMINOPHEN 1000 MG/100 ML BAG IVPB ONE (23:00)
[2024-06-21] MEDS: ACETAMINOPHEN 500 MG TABLET (FP) PO ONE (23:02)
[2024-06-22 09:32] LABS: HEMATOCRIT 33.7 % (35.4-49); HEMOGLOBIN 11.4 GM/dL (11.7-16.9); MCH 27.4 pg (25.7-33.7); MCHC 33.8 g/dl (32.0-35.9); MEAN PLT VOLUME 7.5 fl (7.5-11.1); PLATELET COUNT 68 10^3/uL (134-434); RBC 4.16 M/mm3 (4.00-5.60); RDW 17.3 % (11.9-15.9); WHITE BLOOD COUNT 3.8 K/mm3 (4.0-10.0)
[2024-06-22 09:50] LABS: POTASSIUM 3.8 mmol/L (3.5-5.1)
[2024-06-22 09:52] LABS: ALBUMIN 3.4 g/dl (3.4-5.0); CALCIUM 8.9 mg/dL (8.5-10.1)
[2024-06-22 09:56] LABS: CREATININE 0.6 mg/dL (0.55-1.3)
[2024-06-22 09:57] LABS: TOT PROT 7.4 g/dl (6.4-8.2)
[2024-06-23 10:22] LABS: HEMATOCRIT 32.7 % (35.4-49); MCH 27.6 pg (25.7-33.7); MCHC 33.6 g/dl (32.0-35.9); MEAN CELL VOLUME 82.1 fl (80-96); MEAN PLT VOLUME 7.6 fl (7.5-11.1); PLATELET COUNT 62 10^3/uL (134-434); RBC 3.98 M/mm3 (4.00-5.60); RDW 17.4 % (11.9-15.9); WHITE BLOOD COUNT 3.6 K/mm3 (4.0-10.0)
[2024-06-23 12:16] LABS: POTASSIUM 3.9 mmol/L (3.5-5.1)
[2024-06-23 12:27] LABS: ALBUMIN 3.2 g/dl (3.4-5.0); BLOOD UREA NITROGEN 14.7 mg/dL (7-18); CALCIUM 8.8 mg/dL (8.5-10.1)
[2024-06-23 12:32] LABS: BILIRUBIN,TOTAL 1.2 mg/dL (0.2-1); CREATININE 0.6 mg/dL (0.55-1.3)
[2024-06-23] MEDS: LACTULOSE 20 GM/30 ML UDC (FOR ORAL USE ONLY) PO SCH (15:54)
[2024-06-23 18:53] LABS: BILIRUBIN,DIRECT 0.4 mg/dL (0.0-0.2)
[2024-06-23] MEDS: CARVEDILOL 3.125 MG TABLET (FP) PO SCH (21:40)
[2024-06-24 10:03] LABS: POTASSIUM 3.6 mmol/L (3.5-5.1)
[2024-06-24 10:05] LABS: ALBUMIN 3.4 g/dl (3.4-5.0); CALCIUM 8.9 mg/dL (8.5-10.1)
[2024-06-24 10:06] LABS: BLOOD UREA NITROGEN 13.8 mg/dL (7-18)
[2024-06-24 10:09] LABS: CREATININE 0.5 mg/dL (0.55-1.3)
[2024-06-24 10:10] LABS: BILIRUBIN,TOTAL 1.1 mg/dL (0.2-1)
[2024-06-24 10:20] LABS: TOT PROT 7.2 g/dl (6.4-8.2)
[2024-06-25] MEDS: THIAMINE 100 MG TABLET PO SCH (10:50)
[2024-06-25 14:10] VITALS: BP 116/71; PULSE 59; TEMP 98.4
== END 2024-06-25 17:04 | disposition other institution (70) | DRG 689 ==
LOC: JER 00:26 → JERBED 05:12 → OBSVTOIN 05:24 → J8W 15:20 → J6S 06-17 11:30
PROVIDERS: ADMIT Internal Medicine; ATTEND Internal Medicine
DX: N39.0 Urinary tract infection, site not specified (principal); G93.41 Metabolic encephalopathy; F11.20 Opioid dependence, uncomplicated; F14.20 Cocaine dependence, uncomplicated; E51.2 Wernicke's encephalopathy; D61.818 Other pancytopenia; F10.20 Alcohol dependence, uncomplicated; F12.90 Cannabis use, unspecified, uncomplicated; B96.20 Unspecified Escherichia coli [E. coli] as the cause of diseases classified elsewhere; F20.9 Schizophrenia, unspecified; K76.82 Hepatic encephalopathy; G24.01 Drug induced subacute dyskinesia; D50.9 Iron deficiency anemia, unspecified; K21.9 Gastro-esophageal reflux disease without esophagitis; B18.2 Chronic viral hepatitis C; K80.20 Calculus of gallbladder without cholecystitis without obstruction; E80.6 Other disorders of bilirubin metabolism; R19.7 Diarrhea, unspecified; R13.10 Dysphagia, unspecified; K74.60 Unspecified cirrhosis of liver; R94.31 Abnormal electrocardiogram [ECG] [EKG]
CPT/HCPCS: 36415; 70450-TC; 70496-TC; 70498-TC; 71045-TC-FY; 71046-TC-FY; 71250-TC; 74183-TC; 76705-TC; 80053; 80061; 80307; 81003; 82140; 82248; 82550; 82553; 82607; 82962; 83036; 83735; 84100; 84439; 84443; 84484; 85025; 85027; 85610; 85730; 86780; 86850; 86900; 86901; 87086; 87186; 87635; 93005; 93010; 99285-25; G0378; J0131; Q9967

== ENCOUNTER 2024-06-25 17:12 | Inpatient (IN) | payer OTHER ==
[2024-06-25 19:23] VITALS: BMI 27.3
[2024-06-25] MEDS ORDERED: guaiFENesin 600 MG TABLET.ER (FP) PO PRN (19:56)
[2024-06-25] MEDS ORDERED: MAGNESIUM HYDROX 2400MG/30ML ORAL SUSPENSION 30 ML CUP PO PRN (19:56)
[2024-06-25] MEDS ORDERED: IBUPROFEN 400 MG TABLET (FP) PO PRN (19:56)
[2024-06-25] MEDS ORDERED: POLYETHYLENE GLYCOL (HEALTHYLAX) 3350 17 GM PACKET PO PRN (19:56)
[2024-06-25] MEDS ORDERED: LOPERAMIDE HCL 2 MG CAPSULE PO PRN (19:56)
[2024-06-25] MEDS ORDERED: BENZONATATE 200 MG CAPSULE PO PRN (19:56)
[2024-06-25] MEDS ORDERED: hydrOXYzine PAMOATE 25 MG CAPSULE (FP) PO PRN (19:56)
[2024-06-25] MEDS ORDERED: ACETAMINOPHEN 325 MG TABLET (FP) PO PRN (19:56)
[2024-06-25] MEDS ORDERED: BENZOCAINE/MENTHOL (CHLORASEPTIC ) LOZENGE MM PRN (19:56)
[2024-06-25] MEDS: MELATONIN 5 MG TABLETS PO SCH (21:23)
[2024-06-25] MEDS: THIAMINE 100 MG TABLET PO SCH (21:23)
[2024-06-25] MEDS: CARVEDILOL 3.125 MG TABLET (FP) PO SCH (21:23)
[2024-06-26] MEDS: FOLIC ACID 1 MG TABLET (FP) PO SCH (09:49)
[2024-06-26] MEDS: PRENATAL VITAMINS W/ FOLIC ACID TABLET (FP) PO SCH (09:49)
[2024-06-26] MEDS: PANTOPRAZOLE 40 MG TABLET PO SCH (09:49)
[2024-06-26] MEDS: LACTULOSE 20 GM/30 ML UDC (FOR ORAL USE ONLY) PO SCH (09:51)
[2024-06-26] MEDS ORDERED: BISMUTH SUBSALICYLATE 262 MG/15 ML BTL PO PRN (09:53)
[2024-06-26] MEDS ORDERED: ONDANSETRON *ODT* 4 MG TABLET SL PRN (09:53)
[2024-06-26] MEDS ORDERED: NICOTINE 7 MG/24 HOURS TOPICAL PATCH TD PRN (10:00)
[2024-06-26] MEDS ORDERED: methaDONE HCL 10 MG TABLET PO SCH (10:04)
[2024-06-26] MEDS: methaDONE HCL 10 MG TABLET PO SCH (10:30)
[2024-06-26] MEDS: FERROUS SO4 325 MG TABLET (FP) PO SCH (10:48)
[2024-06-26] MEDS: RIFAXIMIN 550 MG TABLET PO SCH (10:48)
[2024-06-26] MEDS: methaDONE 80 MG, methaDONE 20 MG PO SCH (10:49)
[2024-06-27 12:01] LABS: HEMOGLOBIN 10.6 GM/dL (11.7-16.9); MCH 27.8 pg (25.7-33.7); MCHC 34.1 g/dl (32.0-35.9); MEAN CELL VOLUME 81.6 fl (80-96); MEAN PLT VOLUME 7.7 fl (7.5-11.1); PLATELET COUNT 73 10^3/uL (134-434); RBC 3.81 M/mm3 (4.00-5.60); RDW 17.8 % (11.9-15.9); WHITE BLOOD COUNT 4.8 K/mm3 (4.0-10.0)
[2024-06-27] MEDS: BACITRACIN 0.9 GM PACKET TP SCH (13:13)
[2024-06-27 13:53] LABS: POTASSIUM 3.8 mmol/L (3.5-5.1)
[2024-06-27 13:54] LABS: CALCIUM 8.7 mg/dL (8.5-10.1)
[2024-06-27 13:55] LABS: ALBUMIN 3.1 g/dl (3.4-5.0); BLOOD UREA NITROGEN 13.5 mg/dL (7-18)
[2024-06-27 13:58] LABS: CREATININE 0.6 mg/dL (0.55-1.3)
[2024-06-27 14:00] LABS: TOT PROT 6.7 g/dl (6.4-8.2)
[2024-06-28] MEDS: SUVOREXANT 5 MG TABLET PO PRN (21:32)
[2024-06-29] MEDS: METHOCARBAMOL 500 MG TABLET PO PRN (14:24)
[2024-07-01] MEDS: IBUPROFEN 600 MG TABLET (FP) PO PRN (18:19)
[2024-07-01] MEDS: SUVOREXANT 5 MG TABLET PO PRN (21:24)
[2024-07-02] MEDS: MAG HYDROX/AL HYDROX/SIMETH 30 ML UNIT-DOSE CUP PO PRN (03:01)
[2024-07-03] MEDS: MAGNESIUM OXIDE 400 MG TABLET (FP) PO SCH (21:25)
[2024-07-04] MEDS: LACTULOSE 20 GM/30 ML UDC (FOR ORAL USE ONLY) PO PRN (05:40)
[2024-07-04 11:29] LABS: POTASSIUM 3.6 mmol/L (3.5-5.1)
[2024-07-04 11:36] LABS: ALBUMIN 2.9 g/dl (3.4-5.0); BLOOD UREA NITROGEN 13.8 mg/dL (7-18); CALCIUM 8.8 mg/dL (8.5-10.1)
[2024-07-04 11:39] LABS: CREATININE 0.6 mg/dL (0.55-1.3)
[2024-07-04 11:40] LABS: BILIRUBIN,TOTAL 1.2 mg/dL (0.2-1); TOT PROT 6.2 g/dl (6.4-8.2)
[2024-07-05] MEDS: SUVOREXANT 5 MG TABLET PO PRN (21:23)
[2024-07-08] MEDS: SUVOREXANT 5 MG TABLET PO PRN (21:25)
[2024-07-12] MEDS: SUVOREXANT 5 MG TABLET PO PRN (21:33)
[2024-07-16] MEDS: QUEtiapine FUMARATE 50 MG TABLET PO SCH (21:46)
[2024-07-18] MEDS: QUEtiapine FUMARATE 100 MG TABLET (FP) PO SCH (21:31)
[2024-07-19] MEDS: DOCUSATE SODIUM 100 MG CAPSULE (FP) PO SCH (13:52)
[2024-07-23 07:01] VITALS: BP 141/74; PULSE 56; RESP 16; TEMP 97.1
== END 2024-07-23 09:49 | disposition home or self-care (01) | DRG 895 ==
LOC: YASAS 17:12 → Y3W 20:10
PROVIDERS: ADMIT Allergy & Immunology; ATTEND Psychiatry & Neurology Pain Medicine
PROC: HZ42ZZZ Group Counseling for Substance Abuse Treatment, Cognitive-Behavioral (ICD-10-PCS; principal; 2024-06-25)
DX: F10.20 Alcohol dependence, uncomplicated (principal); F14.20 Cocaine dependence, uncomplicated; F11.20 Opioid dependence, uncomplicated; E72.20 Disorder of urea cycle metabolism, unspecified; N39.0 Urinary tract infection, site not specified; F17.210 Nicotine dependence, cigarettes, uncomplicated; F20.9 Schizophrenia, unspecified; G24.01 Drug induced subacute dyskinesia; K70.30 Alcoholic cirrhosis of liver without ascites; K59.00 Constipation, unspecified; Z86.19 Personal history of other infectious and parasitic diseases
CPT/HCPCS: 36415; 73630-TC-RT-FY; 80053; 80305; 80307; 82140; 82652; 83735; 85027; 87811; 93005; 93010